=== PATIENT | female | born 1970 | race Two or more races ===

== ENCOUNTER 2019-07-30 09:34 | Inpatient (IN) | payer MEDICAID ==
[2019-07-20 12:35] LABS: APPEARANCE,URINE CLEAR; BILIRUBIN, URINE NEGATIVE (NEGATIVE); COLOR,URINE PALE YELLOW; GLUCOSE, URINE (UA) NEGATIVE (NEGATIVE); KETONES,URINE NEGATIVE (NEGATIVE); LEUKOCYTE ESTERASE ,URINE 2+ (NEGATIVE); NITRITE,URINE NEGATIVE (NEGATIVE); PH,URINE 6 (4.5-8.0); PROTEIN,URINE NEGATIVE (NEGATIVE); UROBILINOGEN,URINE NORMAL MG/DL (0.0-1.0)
[2019-07-20 12:37] LABS: ANION GAP 7 mmol/L (5-15); BLOOD UREA NITROGEN 14 mg/dL (7-18); CALCIUM 9.5 MG/DL (8.5-10.1); CARBON DIOXIDE 30 MMOL/L (21-32); CHLORIDE 106 MMOL/L (98-107); CREATININE 0.6 MG/DL (0.55-1.30); POTASSIUM 4.5 MMOL/L (3.5-5.1); SODIUM 143 MMOL/L (136-145)
[2019-07-20 12:52] LABS: BASOPHILS % (AUTO) 1.2 % (0.0-2.0); HEMATOCRIT 38.5 % (37.0-47.0); HEMOGLOBIN 12.8 G/DL (12.0-16.0); LYMPHOCYTES % (AUTO) 20.3 % (20.0-45.0); MEAN CORPUSCULAR VOLUME 95 FL (80-99); MONOCYTES % (AUTO) 6.7 % (1.0-10.0); NEUTROPHILS % (AUTO) 71.8 % (45.0-75.0); PLATELET COUNT 166 K/UL (150-450); RED BLOOD COUNT 4.06 M/UL (4.20-5.40); WHITE BLOOD COUNT 4.8 K/UL (4.8-10.8)
--- NOTE | 2019-07-20 13:06 | Diagnostic Imaging Report ---
Indication: Cough Technique: 2 views of the chest Comparison: none Findings: There is a right chest port catheter. The lungs and pleural spaces are clear. The heart size is normal. Impression: No acute process
--- NOTE | 2019-07-23 14:54 | Cardiology Report ---
APPROVED REPORT EKG Measurement Heart [id number] Normal sinus rhythm Left axis deviation Incomplete right bundle branch block Abnormal ECG
--- NOTE | 2019-07-29 10:00 | NUR ---
ADMITTED VIA [id number].
--- NOTE | 2019-07-29 14:45 | Pre-op HX & Phy Repo 2 SIG ---
DATE OF ADMISSION: 07/30/2019 SCHEDULED FOR SURGERY: July 30, 2019. HISTORY OF PRESENT ILLNESS: The patient is a 48-year-old female in overall stable health with invasive ductal carcinoma of the left breast, status post neoadjuvant chemotherapy. The patient presented in January 2019 with a left breast mass approximately 3 x 4 cm anterior depth 4 o'clock 3 cm from the nipple at the areolar border and core biopsy revealed invasive ductal carcinoma poorly differentiated. The tumor is estrogen receptor- positive, progesterone receptor-positive, and HER2-positive. The Ki-67 was high at 85%. The patient did not have any palpable lymphadenopathy. She underwent neoadjuvant chemotherapy. She had genetic testing that was negative. Last chemotherapy was in the beginning of June. She is scheduled to undergo left breast partial mastectomy with left axillary lymph node biopsy. PAST MEDICAL HISTORY/MEDICATIONS: None. ALLERGIES: None. OPERATIONS: section x2. REVIEW OF SYSTEMS: 2, para 2. She has regular menstrual periods. Genetic testing was negative for any mutation. PHYSICAL EXAMINATION: GENERAL: The patient is 5 feet 5 inches, 159 pounds. VITAL SIGNS: Stable. HEENT: Within normal limits. LUNGS: Clear. HEART: Regular rhythm. BREASTS: Large and ptotic. Before her chemotherapy, there was a 3 x 4 cm mass lower inner quadrant near the areolar border without any skin or chest wall fixation. At this time, there is no discrete palpable mass, but ultrasound reveals the mass decreased in size. Currently measuring 2.9 x 1 x 2.7 cm at 4 o'clock 3 cm from the nipple. There is no axillary or supraclavicular lymphadenopathy. ABDOMEN: Soft. PELVIC AND RECTAL: Per primary care. EXTREMITIES: Without edema. NEUROLOGIC: Physiologic. IMPRESSION: Invasive ductal carcinoma, left breast. [place], [place], HER2 positive, status post neoadjuvant chemotherapy. PLAN: Left breast partial mastectomy and left axillary lymph node biopsy. I have had a full discussion with the patient regarding the nature of her condition, the nature of the surgery, indications, alternatives, options, and risks including bleeding, infection, distortion or scarring of breast or nipple, need for additional procedures including additional surgery or chemotherapy or radiation based on final pathology, need for drain for the axilla, etc. All questions have been answered. She understands and agrees to proceed. Don Viraj Castro DR: VICENTA JOB#: [id number] CC:
[2019-07-30] VITALS (9 sets, daily range): BP systolic 124–135; BP diastolic 65–78
[~2019-07-30] VITALS: Ht 167.6 cm; Wt 72.6 kg
--- NOTE | 2019-07-30 08:08 | Pre-Procedure Note/Attestation ---
Pre-Procedure Note/Attestation Complete Prior to Procedure Planned Procedure: left Procedure Narrative: left breast partial mastectomy and left axillary lymph node biopsy Indications for Procedure Pre-Operative Diagnosis: invasive ductal carcinoma left breast Attestation I attest that I discussed the nature of the procedure; its benefits; risks and complications; and alternatives (and the risks and benefits of such alternatives ), prior to the procedure, with the patient (or the patient's legal member services representative). I attest that, if there was a reasonable possibility of needing a blood transfusion, the patient (or the patient's legal member services representative) was given the [facility] standardized written summary, pursuant to the Yordy Lam Blood Safety Act ([place] Health and Safety Code # 1645, as amended). I attest that I re-evaluated the patient just prior to the surgery and that there has been no change in the patient's H&P, except as documented below: none Reginald Castro MD Jul 30, 2019 08:08
[~2019-07-30 09:34] MED LIST: NKM
[2019-07-30 11:09] LABS: APPEARANCE,URINE CLEAR; BILIRUBIN, URINE NEGATIVE (NEGATIVE); COLOR,URINE PALE YELLOW; GLUCOSE, URINE (UA) NEGATIVE (NEGATIVE); KETONES,URINE 1+ (NEGATIVE); LEUKOCYTE ESTERASE ,URINE 1+ (NEGATIVE); NITRITE,URINE NEGATIVE (NEGATIVE); PH,URINE 6 (4.5-8.0); PROTEIN,URINE NEGATIVE (NEGATIVE); UROBILINOGEN,URINE NORMAL MG/DL (0.0-1.0)
[2019-07-30] MEDS ORDERED: fentaNYL 100 mcg/2 mL ONE (11:24)
[2019-07-30] MEDS ORDERED: Midazolam 2mg/2ml Inj ONE (11:24)
[2019-07-30] MEDS ORDERED: Morphine Sulfate 10mg/ml Inj ONE (11:24)
[2019-07-30] MEDS ORDERED: Succinylcholine 20mg/ml 10ml vial ONE ×2 (11:27→12:00)
[2019-07-30] MEDS ORDERED: Rocuronium Bromide 50mg/5ml Inj IV ONE ×2 (11:27→12:00)
[2019-07-30] MEDS ORDERED: Neostigmine 1mg/ml 10ml Inj ONE (11:37)
[2019-07-30] MEDS ORDERED: Lidocaine 1% 10mg/ml/Epi 0.005mg/ml 30ml vial INJ ONE (11:45)
[2019-07-30] MEDS ORDERED: Bupivacaine w/Epi 0.5% 30ml Vial INJ ONE (11:45)
[2019-07-30] MEDS ORDERED: Glycopyrrolate 0.2mg/ml 1ml Vial ONE (12:00)
[2019-07-30] MEDS ORDERED: Ketorolac 30mg Inj ONE (12:00)
[2019-07-30] MEDS ORDERED: Propofol 200mg/20ml IV ONE (12:00)
[2019-07-30] MEDS ORDERED: LR 1000ml ONE (12:00)
[2019-07-30] MEDS ORDERED: Sterile Water Irrig 1000ml IRRIG ONE (12:00)
[2019-07-30] MEDS ORDERED: NS Irrig 1000ml IRRIG ONE (12:27)
[2019-07-30] MEDS ORDERED: LR 1000ml 1,000 ML IVLG SCH (12:35)
--- NOTE | 2019-07-30 12:35 | Anethesia Preoperative Eval ---
Anesthesia Pre-op PMH/ROS General Date of Evaluation: Jul 30, 2019 Time of Evaluation: 11:40 Anesthesiologist: Char ASA Score: ASA 2 Mallampati Score Class I : Soft palate, uvula, fauces, pillars visible Class II: Soft palate, uvula, fauces visible Class III: Soft palate, base of uvula visible Class IV: Only hard plate visible Mallampati Classification: Class II Surgeon: Matthew Diagnosis: L breast CA Surgical Procedure: L mastectomy Anesthesia History: none Family History: no anesthesia problems Allergies: Coded Allergies: No Known Allergies (Unverified , 07/29/19) Patient NPO?: Yes Past Medical History Cardiovascular: Denies: HTN, CAD, NM, valve dz, arrhythmia, other Pulmonary: Denies: asthma, COPD, ANDRIY, other Gastrointestinal/Genitourinary: Reports: GERD - mild; Denies: CRI, ESRD, other Neurologic/Psychiatric: Reports: depression/anxiety; Denies: dementia, CVA, TIA, other Endocrine: Denies: DM, hypothyroidism, steroids, other HEENT: Denies: cataract (L), cataract (R), glaucoma, [place] (L), [place] (R), other Hematology/Immune: Reports: anemia - mild; Denies: DVT, bleeding disorder, other Musculoskeletal/Integumentary: Denies: OA, RA, DJD, DDD, edema, other PMH Narrative: as above PSxH Narrative: C-sections x2 Anesthesia Pre-op Phys. Exam Physician Exam Last Vital Signs Date Time Temp Pulse Resp B/P (MAP) Pulse Ox O2 Delivery O2 Flow Rate FiO2 07/30/19 10:35 Room Air 07/30/19 10:30 98.1 75 18 132/75 96 Constitutional: NAD Neurologic: CN 2-12 intact Cardiovascular: RRR, no M/R/G Respiratory: CTA Gastrointestinal: S/NT/ND Airway Exam Mallampati Score: Class II MO: full Neck: flexible ROM: full Teeth: intact Dentures: no upper, no lower Anesthesia Pre-op A/P Labs see chart Urine Test Test 07/30/19 10:40 Urine HCG, Qualitative Negative (NEGATIVE) Studies Pre-op Studies: EKG - NSR Risk Assessment & Plan Assessment: ASA 2 Plan: GA with ETT Status Change Before Surgery: No Pre-Antibiotics Drug: Ancef 1tgr. Given Within 1 Hr of Incision: Yes Time Given: 12:13 Terrence Pardo MD Jul 30, 2019 12:35
[2019-07-30] MEDS ORDERED: Ketorolac 30mg Inj IV PRN (12:45)
[2019-07-30] MEDS ORDERED: DiphenhydrAMINE 50mg/ml Inj IVP PRN (12:45)
[2019-07-30] MEDS ORDERED: Meperidine 50mg/ml Inj(FOR RIGORS ONLY) IV PRN (12:45)
[2019-07-30] MEDS ORDERED: Metoclopramide 10mg/2ml Inj IVP PRN (12:45)
[2019-07-30] MEDS ORDERED: HYDROmorphone 1mg/ml Carpuject SUBQ PRN (13:30)
--- NOTE | 2019-07-30 13:37 | Brief Operative Note ---
Immediate Post Operative Note Operative Note Pre-op Diagnosis: invasive ductal carcinoma left breast Procedure: left breast partial mastectomy and left axillary lymph node biopsy Post-op Diagnosis: same Post-op Diagnosis: same as pre-op Findings: consistent w/pre-op dx studies Surgeon: mary Anesthesiologist: angelica Anesthesia: general Specimen: yes - left breast tissue and left axillary lymph nodes Complications: none Condition: stable Fluids: see anesthesia record Estimated Blood Loss: minimal Drains: LANA Implant(s) used?: No Reginald Castro MD Jul 30, 2019 13:37
--- NOTE | 2019-07-30 13:50 | Immediate Post-Op Evaluation ---
Immediate Post-Op Evalulation Immediate Post-Op Evalulation Procedure: L breast partial mastectomy with axillary l/n dissection Date of Evaluation: Jul 30, 2019 Time of Evaluation: 13:48 IV Fluids: 1000 Blood Products: none Estimated Blood Loss: <50 Urinary Output: none Blood Pressure Systolic: 124 Blood Pressure Diastolic: 72 Pulse Rate: 82 Respiratory Rate: 20 O2 Sat by Pulse Oximetry: 98 Temperature (Fahrenheit): 97.6 Pain Score (1-10): 1 Nausea: No Vomiting: No Complications none Patient Status: reacts, patent, extubated, none Hydration Status: adequate Terrence Pardo MD Jul 30, 2019 13:50
[2019-07-30] MEDS ORDERED: ceFAZolin sod 1 GM in D5W 55 ML IV SCH (14:00)
--- NOTE | 2019-07-30 15:20 | 48 Hour Post Anesthesia Eval ---
Post Anesthesia Evaluation Procedure: L breast partial mastectomy with axillary l/n dissection Date of Evaluation: Jul 30, 2019 Time of Evaluation: 18:02 Blood Pressure Systolic: 131 0: 65 Pulse Rate: 69 Respiratory Rate: 12 Temperature (Fahrenheit): 98.1 O2 Sat by Pulse Oximetry: 100 Airway: patent Nausea: No Vomiting: No Pain Intensity: 3 Hydration Status: adequate Cardiopulmonary Status: Stable Mental Status/LOC: patient returned to baseline Follow-up Care/Observations: 0 Post-Anesthesia Complications: 0 Follow-up care needed: N/A Thiago Price MD Jul 30, 2019 15:20
[2019-07-30] MEDS ORDERED: HYDROcodone/Acetamin 5/325 tab ORAL PRN (17:00)
--- NOTE | 2019-07-30 17:00 | NUR ---
Pt arrived earlier in shift , in stable condition breathing with use of NC 3 liters. Alert no presence of sedation. Able to answer all questions appropriately. Bandage is clean and intact, no presence of active bleeding. informed of importance of not removing bra, and if area felt wet to notify nurse. Pt encouraged to move arm .LANA drain empty. Separator Operator [employer] demonstrated how to empty LANA drain and what to monitor for, and importance of creating a vacuum to ensure suction action of device. Upon this writing pt does not have any pain. Has sensation, and mobility to upper and lower extremities. Pulses Palpable radial and brachial area. Has sensation to fingers and able to move digits on left hand. . No verbalizations of nausea, verbalized thirst , encouraged small sips in small increments to prevent the commonality of nausea, vomitus post surgery. Informed of importance to report if her bladder felt full . Bladder is nondistended at this time, has pt has no urge to urinate upon this writing. SCD on and functioning encouraged to move all extremities, IS at bedside and in use. and son at bedside.
--- NOTE | 2019-07-30 17:45 | Operative Note - Dictated ---
DATE OF OPERATION: 07/30/2019 SURGEON: Reginald Castro M.D. HARVEST WORKER: None. ANESTHESIOLOGIST: Terrence Pardo M.D. TYPE OF ANESTHESIA: General. PREOPERATIVE DIAGNOSIS: Invasive ductal carcinoma, left breast. POSTOPERATIVE DIAGNOSIS: Invasive ductal carcinoma, left breast. OPERATION PERFORMED: Left breast partial mastectomy and left axillary lymph node biopsy. DESCRIPTION OF PROCEDURE: The patient was taken to the operating room and under general anesthesia with sequential compression device stockings in place, she was prepped and draped in usual fashion. The patient originally presented with a hard 4 cm mass at 4 o'clock left breast at the areolar border extending into the lower outer quadrant following neoadjuvant chemotherapy for triple positive breast cancer markers. The mass was diminished in size and less apparent. A circumareolar incision was made extending laterally transversely achieving hemostasis with cautery and dissecting flaps circumferentially. The appropriate section of breast tissue including palpable tumor was widely resected orienting the specimen with suture markers anterior, superior, and medial. Hemostasis was carefully achieved with cautery. The field was irrigated and hemostasis secured. The gross margins appeared clear. Incision was closed with interrupted 3-0 Vicryl deep dermal subcutaneous sutures followed by continuous 4-0 Monocryl subcuticular suture. Left axillary incision was made achieving hemostasis with cautery and incising the clavipectoral fascia. Lower level lymph nodes were identified and excised using the Rapport electrical surgical device. Through a separate stab incision inferiorly, a large flat Evan-Larry drain was placed into the axilla and sutured to the skin with 2-0 nylon suture. The field was irrigated and hemostasis was seen to be secured. The clavipectoral fascia was closed with interrupted 3-0 Vicryl, subcutaneous tissues closed with interrupted 3-0 Vicryl, and skin closed with continuous 4-0 Monocryl subcuticular suture. Tincture of benzoin and half-inch Steri-Strips were applied to both incisions followed by dry sterile dressings. Final sponge and needle counts were correct. Surgical brassiere was applied. The patient tolerated the procedure well and left the operating room in good condition. Reginald Castro M.D. DR: MALLORIE JOB#: [id number] CC:
[2019-07-30] MEDS: D5 1/2NS w/KCl 20mEq 1,000 ML IV SCH (17:55)
--- NOTE | 2019-07-30 19:30 | NUR ---
NURSE NOTES: Receive a report from MICHAEL Davis. Round is done. Pt is awake and alert, orientation x4. [place] speaking and family member, son, is at bed side. Breathing is even and non labored. No acute distress noted. Denies any pain at this time. Inform pt that pain medication can be given as ordered as needed. Op site is clear without any bleeding signs with wearing support bra. Justo inserted state and no collection noted on the bulb yet. Encourage oral hydration and I/S every hour while awake. No nausea/vomiting/dizziness/ headache noted. No voiding sense noted yet. Will continue to monitor. Call light within reach.
--- NOTE | 2019-07-30 19:40 | NUR ---
HAND-OFF: Report given to .Yoshi RODRIGUEZ informed that pt has not urinated since return from surgery, condition stable, bandage remains clean and intact, IV patent . Tolerated fluids and dinner well no n/v
[2019-07-30] MEDS: ceFAZolin sod 1 GM in D5W 55 ML IV SCH (20:26)
--- NOTE | 2019-07-30 20:30 | NUR ---
NURSE NOTES: Ancef 1g IVS start to run. Explain S/E of medication. Inform pt and son to call nurse if any s/e occurs. Verbalizes understanding. Will continue to monitor.
--- NOTE | 2019-07-30 21:00 | NUR ---
NURSE NOTES: ABT treatment is done without any S/E. On SCDs on bilateral L/E for DVT. Not self-void yet but will continue to monitor.
--- NOTE | 2019-07-30 22:00 | NUR ---
NURSE NOTES: Pt feels voiding sensation. Assist pt to bathroom. Explain pt to move slowly but no noted any dizziness or JOHNSON. Pt voids well in the bathroom. No feeling of residual sensation. Denies any pain on op site. Op site kept clean and dry. Teach how to empty out LANA to pt and son. Verbalizes understanding. Empty out LANA 3ml as serosanguineous color. Will continue to monitor.
[2019-07-31] VITALS: BP 114/68
[2019-07-31 04:00] VITALS: BP 124/73
[2019-07-31] MEDS: ceFAZolin sod 1 GM in D5W 55 ML IV SCH (04:02)
[2019-07-31] MEDS: D5 1/2NS w/KCl 20mEq 1,000 ML IV SCH (04:02)
--- NOTE | 2019-07-31 06:00 | NUR ---
NURSE NOTES: Denies any pain. LANA drained 10ml for 12hrs. No bleeding signs on op site. Will continue to monitor.
--- NOTE | 2019-07-31 07:45 | NUR ---
HAND-OFF: Report given to MICHAEL Davis.
[2019-07-31 08:00] VITALS: BP 121/71
--- NOTE | 2019-07-31 08:07 | NUR ---
NURSE NOTES: Current plan will be followed. To include monitoring for pain , bleeding , and education related to LANA drain
--- NOTE | 2019-07-31 09:30 | NUR ---
NURSE NOTES: Pt educated on how to empty and record LANA drain output. Informed to leave bandage in place , only change if it becomes soiled. No shower from the neck down, may wash hair in the sink. Encouraged to exercise arm.Supplies given, awaiting arrival of Dr Castro. No pain or discomfort. Temp 98.0
--- NOTE | 2019-07-31 10:24 | General Progress Note ---
Progress Note Progress Note AVSS Doing well and learning to care for LANA drain Left breast and axilla incisions clean with intact steristrips LANA 10cc serosang Imp: Stable Plan: discharge with LANA drain instructions/limitations/supplies discussed/provided Rx [place] /325 #30 f/u office 08/06 Reginald Castro MD Jul 31, 2019 10:24
[2019-07-31] MEDS ORDERED: Tubing IV Secondary IV ONE (11:39)
--- NOTE | 2019-07-31 11:53 | NUR ---
NURSE NOTES: Pt discharged with instructions. Follow up appt with Dr Castro will be on Friday, Aug 05, 2019. Pt informed of importance of keeping bra on, signs of infection to call Dr Castro for. Discharge teaching provided in Bulgarian to include breast cancer survival, breast cancer biopsy information. IV removed . Pt oral temperature, as been within normal , b/p baseline in 130 systolic which is slightly elevated . Pt is aware not to lift heavy objects weighing not more than 3 pounds. Encouraged to use arm freely, to promote circulation. Verbalized understanding
--- NOTE | 2019-07-31 14:08 | NUR ---
CASE MANAGEMENT: INITIAL REVIEW 48 YO F PRESENTED TO [facility] FROM HOME PMHx: CSECTION. LEFT BREAST CA. SI:MALIGNANT NEOPLASM OF LEFT BREAST. T 98.1 HR 75 RR 18 B/P 132/75 SATS 96% ON RA LABS: WNL IS: OR MEDS PATIENT ADMITTED TO MED/SURG 07/30/2019 @ 2636 DCP: PATIENT TO BE DISCHARGED TO HOME ONCE MEDICALLY CLEARED. PLAN OF CARE: Pre-op Diagnosis: invasive ductal carcinoma left breast Procedure: left breast partial mastectomy and left axillary lymph node biopsy Post-op Diagnosis: same Post-op Diagnosis: same as pre-op Addendum: 07/31/19 at 1635 by Poly Wilkinson CM INTERQUAL MET
--- NOTE | 2019-08-02 10:36 | Discharge Summary ---
Discharge Summary Hospital Course Date of Admission Jul 30, 2019 at 16:33 Date of Discharge Jul 31, 2019 at 11:40 Admitting Diagnosis Invasive ductal carcinoma, left breast Reason for Hospitalization: elective surgery MARVA Levine is a 48 year old female who was admitted on Jul 30, 2019 at 16 :33 for Invasive ductal carcinoma, left breast. 48-year-old female in overall stable health with invasive ductal carcinoma of the left breast, status post neoadjuvant chemotherapy. The patient presented in January 2019 with a left breast mass approximately 3 x 4 cm anterior depth 4 o'clock 3 cm from the nipple at the areolar border and core biopsy revealed invasive ductal carcinoma, poorly differentiated. The tumor estrogen receptor- positive, progesterone receptor-positive, and HER2-positive. The Ki-67 was high at 85%. The patient did not have any palpable lymphadenopathy. She underwent neoadjuvant chemotherapy. She had genetic testing that was negative. Last chemotherapy was in the beginning of June. Patient was scheduled to undergo left breast partial mastectomy with left axillary lymph node biopsy. Procedures s/p 07/30/[address] Castro Left breast partial mastectomy and left axillary lymph node biopsy. Hospital Course status post surgery course of recovery uneventful initially IV fluids s/p perioperative antibiotics left breast and axilla incisions clean with intact steri-strips patient with LANA drain; output closely monitored pain management was addressed; pain was controlled patient remained hemodynamically stable ambulated with PT tolerated diet , IV fluids discontinued antiemetics were on board as needed voided freely bowel regimen instituted patient was stable for discharge patient was taught care for LANA drain patient was discharged with LANA drain discharge instructions/limitations/supplies discussed/provided prescription for [place] 5/325 #30 provided follow up with surgeon 08/06 FINAL DIAGNOSES Invasive ductal carcinoma, left breast s/p Left breast partial mastectomy and left axillary lymph node biopsy. Discharge Condition Upon Discharge: stable Discharge Disposition Patient was discharged home Discharge Instructions Discharge Instructions Special Instructions I have been assigned to complete a D/C Summary on this account. I was not involved in the patient management Jenna Santa NP Aug 02, 2019 10:36
== END 2019-07-31 11:40 | disposition home or self-care (01) | DRG 363 ==
LOC: SUR 09:34 → 3E 16:33
PROC: 07B60ZX Excision of Left Axillary Lymphatic, Open Approach, Diagnostic (ICD-10-PCS; 2019-07-30)
PROC: 0HBU0ZZ Excision of Left Breast, Open Approach (ICD-10-PCS; principal; 2019-07-30 12:00)
DX: C50.812 Malignant neoplasm of overlapping sites of left female breast (principal); Z17.0 Estrogen receptor positive status [ER+]
CPT/HCPCS: 36415; 71046; 80048; 81003; 81025; 85025; 85610; 85730; 93005; 94003; 94150; J2250; J2405; J2710